=== PATIENT | female | born 1985 | race Caucasian/White ===

== ENCOUNTER 2017-04-16 17:14 | Emergency (ER) | payer SELFPAY, OTHER | END 2017-04-16 18:47 | disposition left against medical advice (07) | LOC: E/R 17:14 | DX: Z53.21 Procedure and treatment not carried out due to patient leaving prior to being seen by health care provider (principal) ==

== ENCOUNTER 2018-09-16 07:40 | Emergency (ER) | payer OTHER | END 2018-09-16 08:33 | disposition home or self-care (01) | LOC: FTE 07:40 | DX: H00.016 Hordeolum externum left eye, unspecified eyelid (principal) | CPT/HCPCS: 99283; Z7502 ==